=== PATIENT | female | born 1980 | race Native Hawaiian/Other Pacific Islander ===

== ENCOUNTER 2022-06-12 09:37 | Outpatient (CLI) | payer OTHER, BC | END 2022-06-12 19:22 | disposition home or self-care (01) | LOC: MAMMO 09:37 | PROVIDERS: ATTEND Nurse Practitioner Family | DX: N63.0 Unspecified lump in unspecified breast (principal); N64.59 Other signs and symptoms in breast | CPT/HCPCS: G0279 ==